=== PATIENT | female | born 1970 ===

== ENCOUNTER 2020-03-27 11:02 | Observation (INO) ==
[2020-03-27] MEDS ORDERED: Clindamycin 900 MG/D5W BAG IVPB ONE (12:00)
[2020-03-27 12:10] LABS: ABS Eosinophils 0.1 10^3/ul (0-0.6); ABS Lymphocytes 1.9 10^3/ul (1.0-4.8); ABS Monocytes 0.6 10^3/ul (0-0.8); ABS Neutrophils 5.1 10^3/ul (1.5-7.7); Eosinophil % 1.2 %; Hematocrit 46 % (35-47); Hemoglobin 15.4 g/dL (12.0-16.0); Lymphocyte % 24.7 %; Mean Corpuscular HGB Conc 34 g/dL (31-36); Mean Corpuscular Hemoglobin 31 pg (27-31); Mean Corpuscular Volume 91 fL (80-97); Mean Platelet Volume 9.4 fL (7.4-10.4); Platelet Count 240 10^3/uL (150-450); Red Blood Count 4.99 10^6 /uL (3.70-4.87); Red Cell Distribution Width 13 % (10-15); White Blood Count 7.7 10^3/uL (3.5-10.8)
[2020-03-27 12:20] LABS: Anion Gap 5 mmol/L (2-11); BUN/Creatinine Ratio 27.6 (8-20); Blood Urea Nitrogen 21 mg/dL (6-24); CO2 Carbon Dioxide 27 mmol/L (22-32); Calcium 8.8 mg/dL (8.6-10.3); Chloride 106 mmol/L (101-111); EGFR African American 98.7 (>60); EGFR Non-African American 81.6 (>60); Glucose 92 mg/dL (70-100); Potassium 4.1 mmol/L (3.5-5.0); Sodium 138 mmol/L (135-145)
[2020-03-27 12:25] LABS: Activated Partial Thrombo Time 33.9 seconds (26.0-38.0); INR 1.02 (0.82-1.09)
[2020-03-27 12:27] LABS: HCG Pregnancy < 0.60 mIU/mL
[2020-03-27] MEDS ORDERED: oxyCODONE SR 10 mg TAB ONE (12:27)
[2020-03-27] MEDS ORDERED: Ondansetron 4 mg VIAL 2 MG/ML 2 ml VIAL ONE (12:27)
[2020-03-27] MEDS ORDERED: Iohexol 350 (CONTRAST) 200 ML MDV IV ONE ×2 (12:29→14:46)
[2020-03-27] MEDS ORDERED: Lidocaine 1% VIAL 10 MG/ML VIAL ONE (12:29)
[2020-03-27] MEDS ORDERED: Heparin 2 UNITS/ML 1000 mls 2,000 ML IV ONE (12:29)
[2020-03-27] MEDS ORDERED: Midazolam 5 mg/5 ml VIAL 1 mg/ml 5 ml VIAL (5 mg) ONE (12:57)
[2020-03-27] MEDS ORDERED: nitroGLYCERIN DRIP 25,000 MCG/250 ML BTL ONE (12:57)
[2020-03-27] MEDS ORDERED: fentaNYL 250 mcg/5 ml 50 MCG/ML 5 ml VIAL (250 MCG) ONE (12:57)
[2020-03-27] MEDS ORDERED: HYDROmorphone 1 MG/1 ML SYRINGE ONE ×2 (14:32→15:01)
[2020-03-27] MEDS ORDERED: HYDROmorphone PCA 1 MG/ML Titrat per Protocol PCA SCH (15:00)
[2020-03-27] MEDS ORDERED: Prochlorperazine 5 mg/ml 2 ml VIAL (10 mg) ONE (15:05)
[2020-03-27] MEDS ORDERED: Lorazepam PYXIS KEY ONE (15:09)
[2020-03-27] MEDS ORDERED: LORazepam 2 mg VIAL 1 ml ONE (15:10)
[2020-03-27] MEDS: NS 0.9% 1000 ml BAG 1,000 ML IV SCH ×2 (18:00→21:27)
[2020-03-28] MEDS: Ondansetron 4 mg VIAL 2 MG/ML 2 ml VIAL IV SCH ×2 (00:26→06:16)
[2020-03-28] MEDS ORDERED: HYDROcodone/ACETAMIN 5/325 mg TAB PO PRN ×2 (08:42→09:25)
[2020-03-28] MEDS ORDERED: Prochlorperazine 5 mg/ml 2 ml VIAL (10 mg) IV ONE (08:42)
[2020-03-28 11:02] VITALS: BP 103/80
[2020-03-28] MEDS ORDERED: Ketorolac 10 mg TAB (NF) PO SCH (12:00)
== END 2020-03-28 11:50 | disposition home or self-care (01) ==
LOC: CHICATH 11:02 → SSU 15:55 → INTOOBSV 15:55
PROVIDERS: ADMIT Student in an Organized Health Care Education/Training Program; ATTEND Internal Medicine
PROC: ANG.UFE (2020-03-27 12:10)